=== PATIENT | male | born 1970 | race Caucasian/White ===

== ENCOUNTER 2023-02-18 08:13 | Emergency (ER) | payer OTHER ==
[~2023-02-18] VITALS: Ht 167.6 cm; Wt 90.7 kg
--- NOTE | 2023-02-18 08:15 | NUR ---
Patient BIBA to bed 4.
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
[2023-02-18 08:21] VITALS: BP 168/94; PULSE 84; RESP 18; TEMP 98.2; O2SAT 98
[2023-02-18 08:49] VITALS: BP 158/74; PULSE 88; RESP 19; TEMP 98.2; O2SAT 98
--- NOTE | 2023-02-18 08:51 | NUR ---
Patient discharged with v/s stable. Written and verbal after care instructions given and explained. Patient verbalized understanding. Ambulatory with steady gait. All questions addressed prior to discharge. Advised to follow up with PMD.
== END 2023-02-18 08:51 | disposition home or self-care (01) ==
LOC: MED 08:13
DX: S16.1XXA Strain of muscle, fascia and tendon at neck level, initial encounter (principal); V49.88XA Car occupant (driver) (passenger) injured in other specified transport accidents, initial encounter; Y93.89 Activity, other specified; Y92.89 Other specified places as the place of occurrence of the external cause; Y99.8 Other external cause status
CPT/HCPCS: 99283